=== PATIENT | male | born 1990 | race African-American/Black ===

== ENCOUNTER 2023-11-08 00:38 | Emergency (ER) | payer OTHER, SELFPAY ==
[2023-11-08 00:44] VITALS: BP 155/91; PULSE 92; RESP 17; TEMP 36.3; O2SAT 99; BMI 38.7
--- NOTE | 2023-11-08 00:57 | ED.MALEGU1 ---
HPI - Male Genitourinary General Chief complaint: Urogenital-Male Stated complaint: want tested for STDs Time Seen by Provider: 11/08/23 00:52 Source: patient Mode of arrival: walk-in Limitations: no limitations History of Present Illness HPI Narrative: patient states he was out partying this weekend. unprotected sex. States [birth year]. Now complaining of dysuria and penile discharge. No abdominal pain or fever. No hematuria Related Data Allergies Allergy/AdvReac Type Severity Reaction Status Date / Time No Known Drug Allergies Allergy Verified 11/08/23 00:43 Review of Systems ROS Status of ROS 10 or more systems reviewed and unremarkable except as noted in history and below Exam Constitutional Vital Signs, click to edit/add: Last Vital Signs Temp 97.4 F L 11/08/23 00:44 Pulse 92 H 11/08/23 00:44 Resp 17 11/08/23 00:44 BP 155/91 H 11/08/23 00:44 Pulse Ox 99 11/08/23 00:44 O2 Del Method Room Air 11/08/23 00:44 Common normals: no apparent distress, average body habitus, oriented x3, no limitations, healthy appearing, alert and well nourished [facility] Common normals: normocephalic and head/scalp atraumatic Eye Common normals: EOMs intact bilaterally and conjunctivae normal Respiratory Common normals: normal respiratory effort, no retractions, no use of accessory muscles and clear to auscultation bilaterally Cardio Common normals: regular rate, regular rhythm, S1 normal heart sound and S2 normal heart sound GI Common normals: Normal to inspection, nondistended, normoactive bowel sounds present, soft to palpation and non-tender Extremity Common normals: normal to inspection Neuro Common normals: oriented x3, CN's II-XII intact bilaterally and moves all extremities Psych Appearance: grossly normal Course Vital Signs Vital signs: Vital Signs Temperature 97.4 F L 11/08/23 00:44 Pulse Rate 92 H 11/08/23 00:44 Respiratory Rate 17 11/08/23 00:44 Blood Pressure 155/91 H 11/08/23 00:44 Pulse Oximetry 99 11/08/23 00:44 Oxygen Delivery Method Room Air 11/08/23 00:44 Temperature 97.4 F L 11/08/23 00:44 Pulse Rate 92 H 11/08/23 00:44 Respiratory Rate 17 11/08/23 00:44 Blood Pressure 155/91 H 11/08/23 00:44 Pulse Oximetry 99 11/08/23 00:44 Oxygen Delivery Method Room Air 11/08/23 00:44 MDM - Male Genitourinary MDM Narrative Medical decision making narrative: presents complaining of penile discharge. He is quite certain he was exposed this weekend. He had unprotected sex. No abdominal pain or systemic symptoms. Urine collected and sent for GC and chlamydia patient given injection of Rocephin 500mg and a prescription for doxycycline 100mg bid 10d Lab Data Labs: Lab Results 11/08/23 Range/Units 01:01 Urine Color Lt. yellow (YELLOW) Urine Clarity Clear (CLEAR) Urine pH 6.0 (5.0-9.0) Ur Specific [place] >=1.030 A (1.005-1.025) Urine Protein 100 A (NEG/TRACE) mg/dL Urine Glucose (UA) Negative (NEGATIVE) mg/dL Urine Ketones Negative (NEGATIVE) mg/dL Urine Occult Blood Moderate A (NEGATIVE) Urine Nitrite Negative (NEGATIVE) Urine Bilirubin Negative (NEGATIVE) Urine Urobilinogen 0.2 (0.2-1.0) EU/dL Ur Leukocyte Esterase Moderate A (NEGATIVE) Urine RBC 10-20 A (0-2) #/HPF Urine WBC 20-50 A (NONE SEEN) #/HPF Ur Squamous Epith Cells Rare (NONE/RARE) #/LPF Urine Crystals None seen (None Seen) #/HPF Urine Bacteria Large A (NONE SEEN) #/HPF Urine Casts None seen (NONE SEEN) #/LPF Urine Mucus Moderate A (NONE SEEN) Ur Culture Indicated? Yes Discharge Plan Discharge Stand Alone Forms: Portal Instructions Chief Complaint: Urogenital-Male Clinical Impression: STI (sexually transmitted infection) Patient Disposition: Home, Self-Care Instructions: Sexually Transmitted Diseases (ED) Referrals: Physician,Non-Staff, MD [Primary Care Provider] - 1 week
[2023-11-08 01:09] LABS: Bilirubin Urine NEGATIVE (NEGATIVE); Blood Urine MODERATE (NEGATIVE); Clarity Urine CLEAR (CLEAR); Color Urine LT. YELLOW (YELLOW); Glucose Urine UA NEGATIVE (NEGATIVE); Ketones Urine NEGATIVE (NEGATIVE); Leukocyte Esterase Urine MODERATE (NEGATIVE); Nitrite Urine NEGATIVE (NEGATIVE); Protein Urine 100 mg/dL (NEG/TRACE); Specific Gravity Urine >=1.030 (1.005-1.025); Urine Microscopic Indicated YES; Urobilinogen Urine 0.2 EU/dL (0.2-1.0)
[2023-11-08 01:17] LABS: Bacteria Urine LARGE #/HPF (NONE SEEN); Cast Seen? NONE SEEN #/LPF (NONE SEEN); Crystals Seen? None Seen #/HPF (None Seen); Mucus Urine MODERATE (NONE SEEN); Squamous Epithelial Cell Urine RARE #/LPF (NONE/RARE); Urine Culture Indicated YES; WBC Urine 20-50 #/HPF (NONE SEEN)
[2023-11-08] MEDS: CEFTRIAXONE 500 MG VIAL IM (01:54)
[2023-11-08 03:01] VITALS: BP 142/89; PULSE 88; RESP 16; O2SAT 100
[2023-11-11 21:07] LABS: Neisseria gonorrhoeae, NAA Positive (Negative)
== END 2023-11-08 03:02 | disposition home or self-care (01) ==
PROVIDERS: Emergency Provider Internal Medicine
DX: A64 Unspecified sexually transmitted disease (principal)
CPT/HCPCS: 81001; 87086; 87491; 87591; 96372; 99284